=== PATIENT | male | born 1985 | race Caucasian/White ===

== ENCOUNTER 2017-10-25 15:27 | Emergency (ER) | payer BC ==
[~2017-10-25] VITALS: Ht 188 cm; Wt 86.2 kg
== END 2017-10-25 21:45 | disposition home or self-care (01) ==
LOC: ER 15:27
DX: S92.352A Displaced fracture of fifth metatarsal bone, left foot, initial encounter for closed fracture (principal); W22.8XXA Striking against or struck by other objects, initial encounter; Y93.89 Activity, other specified; Y92.832 Beach as the place of occurrence of the external cause; Y99.8 Other external cause status